=== PATIENT | female | born 1955 | race Caucasian/White ===

== ENCOUNTER → 2018-09-15 | Outpatient (CLI) | payer SELFPAY ==
[2018-09-15 11:27] LABS: ALBUMIN 4.3 gm/dL (3.5-5.0); BILIRUBIN,TOTAL 0.4 mg/dL (0.0-1.0); CALCIUM 8.9 mg/dL (8.4-10.2); CHOLESTEROL RISK RATIO 2.9; CREATININE, serum 1.08 mg/dL (0.52-1.25); POTASSIUM 4.1 mmol/L (3.4-5.0); TOTAL PROTEIN 7.3 gm/dL (6.4-8.2)
== END ==
LOC: COL.LAB 10:28
DX: E11.9 Type 2 diabetes mellitus without complications (principal)

== ENCOUNTER 2018-11-23 11:48 | Emergency (ER) | payer SELFPAY ==
[~2018-11-23] VITALS: Ht 152.4 cm; Wt 87.3 kg
[2018-11-23 11:51] VITALS: TEMP 98
[2018-11-23] MEDS ORDERED: NEURONTIN300 MG/CAP PO (12:12)
[2018-11-23] MEDS ORDERED: GLUCOPHAGE500 MG/TAB PO (12:12)
[2018-11-23] MEDS ORDERED: TOPROL XL 50MG50 MG PO (12:13)
[2018-11-23] MEDS ORDERED: HCTZ12.5TAB PO (12:13)
[2018-11-23] MEDS ORDERED: LIPITOR20 MG PO (12:14)
[2018-11-23] MEDS ORDERED: GLUCOTROL 5M5 MG/TAB PO (12:14)
[2018-11-23] MEDS ORDERED: AMOXICILLIN 8751 TAB PO (13:15)
[2018-11-23] MEDS ORDERED: PREDNISONE20 MG PO (13:15)
[2018-11-23] MEDS ORDERED: PROVENTIL0.09 MG/A1 IH (13:21)
[2018-11-23 13:26] VITALS: BP 122/78; PULSE 86
== END 2018-11-23 13:27 | disposition home or self-care (01) ==
LOC: COL.ER 11:48
DX: J18.9 Pneumonia, unspecified organism (principal); J03.90 Acute tonsillitis, unspecified; E11.9 Type 2 diabetes mellitus without complications; I10 Essential (primary) hypertension; Z87.442 Personal history of urinary calculi; Z98.890 Other specified postprocedural states; Z79.84 Long term (current) use of oral hypoglycemic drugs

== ENCOUNTER 2018-11-25 21:19 | Emergency (ER) | payer SELFPAY ==
[~2018-11-25] VITALS: Ht 152.4 cm; Wt 87.3 kg
[~2018-11-25 21:19] MED LIST: AMOXICILLIN 8751 TAB PO; GLUCOPHAGE500 MG/TAB PO; GLUCOTROL 5M5 MG/TAB PO; HCTZ12.5TAB PO; LIPITOR20 MG PO; NEURONTIN300 MG/CAP PO; PREDNISONE20 MG PO; PROVENTIL0.09 MG/A1 IH; TOPROL XL 50MG50 MG PO
[2018-11-25 21:26] VITALS: TEMP 98.5
[2018-11-25 22:04] LABS: BASO % 0.2 % (0.0-2.0); GRAN # 15.4 (1.4-6.5); GRAN % 84.4 % (42.2-75.2); HEMATOCRIT 39.8 % (37.0-47.0); LYMPH % 10.8 % (20.0-51.0); MEAN CELL VOLUME 92 fl (80.0-100.0); MEAN CORPUSCULAR HEMOGLOBIN 30 pg (27.0-31.0); MEAN CORPUSCULAR HGB CONC 33 g/dl (33.0-37.0); MEAN PLATELET VOLUME 10.6 fl (7.4-10.4); MONO # 0.6 (0.1-0.6); MONO % 3.2 % (1.7-9.3); PLATELET COUNT 327 K/mm3 (130-400); RED BLOOD COUNT 4.33 M/mm3 (4.10-5.30); REDCELL DISTRIBUTION WIDTH-CV 12.4 % (11.5-14.5)
[2018-11-25 22:20] LABS: ALANINE AMINOTRANSFERASE 24 U/L (9-52); ALBUMIN 4.4 gm/dL (3.5-5.0); ALKALINE PHOSPHATASE 91 U/L (50-136); ANION GAP 19 mmol/L (7-16); AST,SGOT 30 U/L (15-37); BILIRUBIN,TOTAL 0.3 mg/dL (0.0-1.0); BLOOD UREA NITROGEN 39 mg/dL (7-17); C-REACTIVE PROTEIN 2.5 mg/dL (0.0-0.9); CALCIUM 9.4 mg/dL (8.4-10.2); CARBON DIOXIDE 18 mmol/L (22-30); CHLORIDE 97 mmol/L (98-107); CREATININE, serum 1.13 (0.52-1.25); POTASSIUM 4.5 mmol/L (3.4-5.0); SODIUM 133 mmol/L (137-145); TOTAL PROTEIN 7.6 gm/dL (6.4-8.2)
[2018-11-25 22:26] LABS: GLUCOSE 648 mg/dL (74-106)
[2018-11-25 22:34] LABS: TROPONIN-I < 0.012 ng/mL (0.000-0.035)
[2018-11-25] MEDS ORDERED: ZESTRIL 10MG10 MG PO (23:52)
[2018-11-25] MEDS ORDERED: GLUCOTROL 5M5 MG/TAB PO (23:53)
[2018-11-25] MEDS ORDERED: NEURONTIN300 MG/CAP PO (23:53)
[2018-11-25] MEDS ORDERED: HCTZ 25MG TAB25 MG PO (23:53)
[2018-11-25] MEDS ORDERED: GLUCOPHAGE1000 MG PO (23:53)
[2018-11-25] MEDS ORDERED: LOPRESSOR 550 MG/TAB PO (23:54)
[2018-11-26 00:40] VITALS: BP 119/66; PULSE 85
== END 2018-11-26 00:40 | disposition other institution (70) ==
LOC: COL.ER 21:19
PROVIDERS: Emergency Medicine
DX: E87.2 Acidosis (principal); E11.65 Type 2 diabetes mellitus with hyperglycemia; I10 Essential (primary) hypertension; J18.1 Lobar pneumonia, unspecified organism; J45.909 Unspecified asthma, uncomplicated; Z79.84 Long term (current) use of oral hypoglycemic drugs
CPT/HCPCS: J1956; J2930; J7030

== ENCOUNTER 2021-08-14 05:03 | Emergency (ER) | payer SELFPAY ==
[~2021-08-14] VITALS: Ht 162.6 cm; Wt 86.4 kg
[~2021-08-14 05:03] MED LIST changes: +GLUCOPHAGE1000 MG PO; +HCTZ 25MG TAB25 MG PO; +LOPRESSOR 550 MG/TAB PO; +ZESTRIL 10MG10 MG PO
[2021-08-14 05:09] VITALS: TEMP 98.8
[2021-08-14 05:35] LABS: BASO % 0.2 % (0.0-2.0); EOS # 0.1 K/mm3 (0.0-0.7); EOS % 1.8 % (0.0-4.0); GRAN % 60.1 % (42.2-75.2); HEMATOCRIT 46.1 % (37.0-47.0); HEMOGLOBIN 15.2 g/dl (12.5-16.0); MEAN CELL VOLUME 88 fl (80.0-100.0); MEAN CORPUSCULAR HEMOGLOBIN 29 pg (27-31); MEAN CORPUSCULAR HGB CONC 33 g/dl (33.0-37.0); MEAN PLATELET VOLUME 10.9 fl (7.4-10.4); MONO # 0.5 K/mm3 (0.1-0.6); MONO % 7.7 % (1.7-9.3); PLATELET COUNT 228 K/mm3 (130-400); RED BLOOD COUNT 5.25 M/mm3 (4.10-5.30); REDCELL DISTRIBUTION WIDTH-CV 13.2 % (11.5-14.5)
[2021-08-14 05:55] LABS: ALBUMIN 4.3 gm/dL (3.4-4.8); BILIRUBIN,TOTAL 0.6 mg/dL (0.2-1.2); CALCIUM 9.8 mg/dL (8.4-10.2); CREATININE, serum 1.21 mg/dL (0.57-1.11); POTASSIUM 3.4 mmol/L (3.5-4.5); TOTAL PROTEIN 7.8 gm/dL (6.2-8.1)
[2021-08-14] MEDS ORDERED: ZOFRAN ODT4 MG PO (07:50)
[2021-08-14] MEDS ORDERED: NORCO 325 MG-51 TAB PO (07:50)
[2021-08-14 07:55] VITALS: BP 135/77; PULSE 92
== END 2021-08-14 08:00 | disposition home or self-care (01) ==
LOC: COL.ER 05:03
PROVIDERS: Personal Emergency Response Attendant
DX: R10.10 Upper abdominal pain, unspecified (principal); E11.22 Type 2 diabetes mellitus with diabetic chronic kidney disease; E11.40 Type 2 diabetes mellitus with diabetic neuropathy, unspecified; I12.9 Hypertensive chronic kidney disease with stage 1 through stage 4 chronic kidney disease, or unspecified chronic kidney disease; N18.9 Chronic kidney disease, unspecified; Z79.84 Long term (current) use of oral hypoglycemic drugs; Z79.899 Other long term (current) drug therapy
CPT/HCPCS: C9113; J2270; J2405; J7030; Q9967